=== PATIENT | female | born 1930 | race Caucasian/White ===

== ENCOUNTER 2019-10-09 08:08 | Emergency (ER) | payer MEDICARE, BC ==
[2019-10-09 08:24] VITALS: BP 147/76; PULSE 63
--- NOTE | 2019-10-09 08:33 | EDM.PDOC ---
ED HPI GENERAL MEDICAL PROBLEM - General Chief Complaint: Cardiovascular Problem Stated Complaint: ELEVATED BP Time Seen by Provider: 10/09/19 08:28 Source of Information: Reports: Patient History Limitations: Reports: No Limitations - History of Present Illness INITIAL COMMENTS - FREE TEXT/NARRATIVE: It is not exactly clear why the patient is here in the emergency department [facility]. Apparently, long-term care facility did not contact this emergency department prior to sending the patient here. Patient herself states that she has had weeks of waking up in the middle of the night feeling short of breath and that the facility is not providing oxygen for her. She has a long history of hypertension and is on appropriate medication. Patient has not had any complaints of pain such as headache, chest pain, stomachache, or limb pain. Has a scheduled telephone appointment with her primary care physician today. Duration: Chronic, Waxing/Waning - Related Data Allergies Allergy/AdvReac Type Severity Reaction Status Date / Time amoxicillin [Amoxicillin] Allergy Nausea and Verified 10/09/19 08:21 Vomiting donepezil [From Aricept] AdvReac Nausea Verified 10/09/19 08:39 doxycycline AdvReac Nausea Verified 10/09/19 08:39 Home Meds: Home Meds Aspirin [Corey Chewable Aspirin] 81 mg PO DAILY 09/04/14 [History] Calcium Carb/Vitamin D3/Vit K1 [Viactiv Soft Chew Tablet] 1 tab PO BID 09/08/14 [History] Cholecalciferol (Vitamin D3) [Vitamin D-3] 1 tab PO DAILY 09/08/14 [History] Amitriptyline [Elavil] 10 mg PO BEDTIME 10/09/19 [History] Carbidopa/Levodopa [Sinemet 25-100 mg Tablet] 1 tab PO TID 10/09/19 [History] Citalopram [Citalopram HBr] 20 mg PO DAILY 10/09/19 [History] Cranberry Fruit [Cranberry] 1 tab PO DAILY 10/09/19 [History] Donepezil HCl [Aricept] 10 mg PO DAILY 10/09/19 [History] Fludrocortisone [Florinef] 1 tab PO DAILY 10/09/19 [History] Multivitamin [Multivitamins] 3 tab PO DAILY 10/09/19 [History] Oxybutynin Chloride [Oxybutynin Chloride ER] 1 tab PO DAILY 10/09/19 [History] Triamcinolone Acetonide [Kenalog 0.1% Crm] 1 dose TOP BID 10/09/19 [History] Past Medical History HEENT History: Reports: Cataract Gastrointestinal History: Reports: Other (See Below) Other Gastrointestinal History: microscopic colitis 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: , 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 Other SUPERVISING APPRAISER History: breast reduction Musculoskeletal History: Reports: Arthritis Neurological History: Reports: Other (See Below) Other Neuro History: mild memory loss Psychiatric History: Reports: Depression - Past Surgical History HEENT Surgical History: Reports: Cataract Surgery GI Surgical History: Reports: Colonoscopy Female Surgical History: Reports: Breast Reduction Social & Family History - Tobacco Use Smoking Status *Q: Never Smoker Second Hand Smoke Exposure: No - Caffeine Use Caffeine Use: Reports: Coffee - Recreational Drug Use Recreational Drug Use: No ED ROS GENERAL - Review of Systems Review Of Systems: See Below Constitutional: Denies: Fever HEENT: Denies: Ear Pain Respiratory: Denies: Wheezing, Cough Cardiovascular: Denies: Chest Pain GI/Abdominal: Denies: Abdominal Pain : Denies: Dysuria Musculoskeletal: Denies: Joint Pain, Muscle Pain Skin: Denies: Rash Neurological: Denies: Confusion, Headache ED EXAM, GENERAL - Physical Exam Exam: See Below Free Text/Narrative:: Thin elderly woman does not appear to be in any distress whatsoever. Exam Limited By: No Limitations General Appearance: Alert, No Apparent Distress Ears: Normal External Exam Nose: Normal Inspection Throat/Mouth: Normal Inspection Head: Atraumatic Neck: Non-Tender. No: Lymphadenopathy (R), Lymphadenopathy (L) Respiratory/Chest: No Respiratory Distress, Lungs Clear, Normal Breath Sounds Cardiovascular: Normal Peripheral Pulses, Regular Rate, Rhythm GI/Abdominal: Normal Bowel Sounds, Soft, Non-Tender Extremities: Normal Inspection, Non-Tender. No: Pedal Edema Psychiatric: Normal Affect, Normal Mood Skin Exam: Warm, Dry Course - Vital Signs Text/Narrative:: Patient and the patient's sister informed that there is no emergency condition detected. I am not prescribing any new medication. Last Recorded V/S: Last Vital Signs Temp 36.7 C 10/09/19 08:24 Pulse 63 10/09/19 08:24 Resp 16 10/09/19 08:24 BP 147/76 H 10/09/19 08:24 Pulse Ox 95 10/09/19 08:24 Departure - Departure Time of Disposition: 08:42 Disposition: DC/[facility] to [facility] Reason for Transfer *Q: Other (Long-term care) Condition: Good Clinical Impression: Hypertension Qualifiers: Hypertension type: essential hypertension Qualified Code(s): I10 - Essential (primary) hypertension Instructions: Hypertension, Adult, [id number] Referrals: Zev Medina MD [Primary Care Provider] - Forms: ED Department Discharge Additional Instructions: To new all your current medications. Follow-up with your primary care doctor. No emergency medical condition detected today Sepsis Event Note (ED) - Evaluation Sepsis Screening Result: No Definite Risk - Focused Exam Vital Signs: Vital Signs Temp Pulse Resp BP Pulse Ox 10/09/19 08:24 36.7 C 63 16 147/76 H 95 10/09/19 08:23 36.7 C 63 16 147/76 H 95
== END 2019-10-09 08:56 ==
LOC: JP.ED 08:08
DX: I10 Essential (primary) hypertension (principal); M19.90 Unspecified osteoarthritis, unspecified site; F32.9 Major depressive disorder, single episode, unspecified; Z88.1 Allergy status to other antibiotic agents; Z88.8 Allergy status to other drugs, medicaments and biological substances; Z79.82 Long term (current) use of aspirin; Z79.899 Other long term (current) drug therapy
CPT/HCPCS: 99283

== ENCOUNTER 2020-10-03 13:59 | Emergency (ER) | payer MEDICARE, BC ==
--- NOTE | 2020-10-03 14:32 | EDM.PDOC ---
ED HPI GENERAL MEDICAL PROBLEM - General Chief Complaint: Behavioral/Psych Stated Complaint: EVAL [facility]IA [facility] Time Seen by Provider: 10/03/20 14:05 Source of Information: Reports: Patient, EMS, RN Notes Reviewed History Limitations: Reports: Physical Impairment - History of Present Illness INITIAL COMMENTS - FREE TEXT/NARRATIVE: 89-year-old female presents emergency department today via EMS services from the memory care unit she does have a history of underlying dementia 2 issues she admitted suicidal ideation to her son who then contacted nursing staff recommend she report to the emergency department for evaluation of suicidal ideation. She also states she was short of breath. When I confronted her about this she does not recall stating that she made threats of suicide she states if I did I might have been very upset. She does admit to shortness of breath but difficult to extract review of systems secondary to underlying dementia - Related Data Allergies Allergy/AdvReac Type Severity Reaction Status Date / Time amoxicillin [Amoxicillin] Allergy Nausea and Verified 10/03/20 14:11 Vomiting donepezil [From Aricept] AdvReac Nausea Verified 10/03/20 14:11 doxycycline AdvReac Nausea Verified 10/03/20 14:11 Home Meds: Home Meds Aspirin [Corey Chewable Aspirin] 81 mg PO DAILY 09/04/14 [History] Calcium Carb/Vitamin D3/Vit K1 [Viactiv Soft Chew Tablet] 1 tab PO BID 09/08/14 [History] Cholecalciferol (Vitamin D3) [Vitamin D-3] 1 tab PO DAILY 09/08/14 [History] Amitriptyline [Elavil] 10 mg PO BEDTIME 10/09/19 [History] Carbidopa/Levodopa [Sinemet 25-100 mg Tablet] 1 tab PO TID 10/09/19 [History] Citalopram [Citalopram HBr] 20 mg PO DAILY 10/09/19 [History] Cranberry Fruit [Cranberry] 1 tab PO DAILY 10/09/19 [History] Donepezil HCl [Aricept] 10 mg PO DAILY 10/09/19 [History] Fludrocortisone [Florinef] 1 tab PO DAILY 10/09/19 [History] Multivitamin [Multivitamins] 3 tab PO DAILY 10/09/19 [History] Oxybutynin Chloride [Oxybutynin Chloride ER] 1 tab PO DAILY 10/09/19 [History] Triamcinolone Acetonide [Kenalog 0.1% Crm] 1 dose TOP BID 10/09/19 [History] Past Medical History HEENT History: Reports: Cataract Gastrointestinal History: Reports: Other (See Below) Other Gastrointestinal History: microscopic colitis 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: , 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 Other LIME PLANT OPERATOR History: breast reduction Musculoskeletal History: Reports: Arthritis Neurological History: Reports: Other (See Below) Other Neuro History: mild memory loss Psychiatric History: Reports: Depression - Past Surgical History Head Surgeries/Procedures: Reports: None HEENT Surgical History: Reports: Cataract Surgery GI Surgical History: Reports: Colonoscopy Female Surgical History: Reports: Breast Reduction Social & Family History - Tobacco Use Tobacco Use Status *Q: Never Tobacco User - Caffeine Use Caffeine Use: Reports: None, Coffee - Recreational Drug Use Recreational Drug Use: No ED ROS GENERAL - Review of Systems Review Of Systems: Unable To Obtain Reason Not Obtained: Dementia ED EXAM, GENERAL - Physical Exam Exam: See Below Exam Limited By: Physical Impairment General Appearance: Alert, No Apparent Distress (Can I call) Respiratory/Chest: No Respiratory Distress, Lungs Clear, Normal Breath Sounds, No Accessory Muscle Use, Chest Non-Tender Cardiovascular: Regular Rate, Rhythm, No Murmur GI/Abdominal: Soft, Non-Tender Extremities: No Pedal Edema Course - Vital Signs Last Recorded V/S: Last Vital Signs Temp 97.5 F 10/03/20 14:10 Pulse 90 10/03/20 15:14 Resp 16 10/03/20 14:10 BP 156/78 H 10/03/20 15:14 Pulse Ox 95 10/03/20 15:14 - Orders/Labs/Meds Labs: Laboratory Tests 10/03/20 10/03/20 10/03/20 Range/Units 14:40 14:40 14:40 WBC 5.9 (4.5-11.0) K/uL RBC 3.90 (3.30-5.50) M/uL Hgb 11.8 L (12.0-15.0) g/dL Hct 37.6 (36.0-48.0) % MCV 96 (80-98) fL MCH 30 (27-31) pg MCHC 31 L (32-36) % Plt Count 268 (150-400) K/uL Neut % (Auto) 57.7 (36-66) % Lymph % (Auto) 27.4 (24-44) % Harney % (Auto) 9.1 H (2-6) % Eos % (Auto) 5.1 H (2-4) % Baso % (Auto) 0.7 (0-1) % Sodium 139 L (140-148) mmol/L Potassium 4.1 (3.6-5.2) mmol/L Chloride 103 (100-108) mmol/L Carbon Dioxide 26 (21-32) mmol/L Anion Gap 14.1 H (5.0-14.0) mmol/L BUN 26 H (7-18) mg/dL Creatinine 1.6 H (0.6-1.0) mg/dL Est Cr Clr Drug Dosing 17.46 mL/min Estimated GFR (MDRD) 30 L (>60) Glucose 120 H (74-106) mg/dL Calcium 8.6 (8.5-10.1) mg/dL Troponin I < 0.017 (0.000-0.056) ng/mL Departure - Departure Time of Disposition: 15:41 Disposition: DC[facility] to [facility] Condition: Poor Clinical Impression: Behavioral problem - Discharge Information Referrals: PCP,None [Primary Care Provider] - Forms: ED Department Discharge Additional Instructions: Follow-up with primary care for further evaluation of ongoing problems, call or return to the emergency department worsening of symptoms Sepsis Event Note (ED) - Evaluation Sepsis Screening Result: No Definite Risk - Focused Exam Vital Signs: Vital Signs Temp Pulse Resp BP Pulse Ox 10/03/20 15:14 90 156/78 H 95 10/03/20 14:58 90 140/71 98 10/03/20 14:10 97.5 F 94 16 113/74 96 - Assessment/Plan Plan: Assessment Acuity = acute Site and laterality = behavioral issues complicated in a patient with underlying dementia Etiology = unknown Manifestations = none Location of injury = Home Lab values = CBC unremarkable creatinine elevated 1.6 consistent chronic renal failure stage G4 troponin was negative Plan She never had any suicidal ideation while she was here did not recall making the statement states she has been short of breath at times difficult to get history from her lab work is reassuring plan to discharge her back to the memory care unit and then have primary care continue to follow-up This note was dictated using [employer] voice recognition software please call with any questions on syntax or grammar.
[2020-10-03 15:22] VITALS: PULSE 90
[2020-10-03 15:23] VITALS: BP 156/78
== END 2020-10-03 16:19 ==
LOC: JP.ED 13:59
DX: F91.9 Conduct disorder, unspecified (principal); M19.90 Unspecified osteoarthritis, unspecified site; Z79.82 Long term (current) use of aspirin; Z79.899 Other long term (current) drug therapy; Z88.0 Allergy status to penicillin; Z88.1 Allergy status to other antibiotic agents
CPT/HCPCS: 36415; 80048; 84484; 85025; 99283; 99285